=== PATIENT | male | born 1950 | race Caucasian/White ===

== ENCOUNTER → 2017-08-22 | Day surgery (SDC) | payer BC, OTHER ==
[~2017-08-22] VITALS: Ht 193 cm; Wt 102.0 kg
[~2017-08-22] MED LIST: ATROPINE SULFATE 1% OPHT SOLN 2 ML BTL ONE; BALANCED SALT SOLN OPHT IRRIG 15 ML BTL ONE; CHLORHEXIDINE GLUCONATE 2 % 1 PACK (2 CLOTHS) TOPICAL PRN; DEXAMETHASONE SOD PHOS 4 MG/ML VIAL ONE; DO NOT ADM ANY ANTICOAGULANT DRUGS PRN; EPINEPHrine HCL (1:1000) 1 MG/ML VIAL ONE; GLYCOPYRROLATE 1 MG/5 ML SYRINGE IV PUSH ONE; INSULIN HUMAN REGULAR 1,000 UNITS/10 ML VIAL SQ PRN; LACTATED RINGER'S 1000 ML IV PRN; LIDOCAINE HCL 1% PF 5 ML AMPULE OTHER ONE; LISI-519 PO; LOSA25TA PO; METOPROLOL TARTRATE 25 MG TAB PO PRN; OMEP20TA93 PO; PHENYLEPH/NS 1000 MCG/10 ML SYR IV ONE; POVIDONE IODINE 5% (ANTISEPSIS KIT) 4 APPLICATIONS EACH NARE PRN; PROPOFOL 200 MG/20 ML AMP IV ONE; SODIUM CHLORID 0.9% 500 ML IV PRN; STERILE WATER FOR INJECTION 20 ML VIAL ONE; SYNT88TA PO; TOBRAMYCIN/DEXAMETHASONE OPTH OINT 3.5 GM TUBE ONE; TRIAMCINOLONE ACETONIDE/PF 40 MG/ML OPTH VIAL ONE; ceFAZolin INJ 1,000 MG VIAL ONE; ePHEDrine/NS 25 MG/5 ML SYR IV ONE
[2017-08-22 13:18] LABS: AUTOMATED NEUTROPHIL # 4.2 TH/MM3 (1.8-7.7); BASOPHIL % 0.6 % (0.0-2.0); EOSINOPHIL # 0.2 TH/MM3 (0-0.4); EOSINOPHIL % 3.2 % (0.0-4.0); HEMATOCRIT 42.4 % (39.0-51.0); HEMO FLAGS DIFF FINAL; LYMPH % 29.6 % (9.0-44.0); LYMPHOCYTE # 2.1 TH/MM3 (1.0-4.8); MEAN CORPUSCULAR HEMOGLOBIN 31.2 PG (27.0-34.0); MEAN CORPUSCULAR HGB CONC 34.7 % (32.0-36.0); MONO % 7.8 % (0.0-8.0); NEUT % 58.8 % (16.0-70.0); PLATELET COUNT 223 TH/MM3 (150-450); RED BLOOD COUNT 4.71 MIL/MM3 (4.50-5.90); RED CELL DISTRIBUTION WIDTH 13.3 % (11.6-17.2); WHITE BLOOD COUNT 7.2 TH/MM3 (4.0-11.0)
[2017-08-22] MEDS: ATROPINE SULFATE 1% OPHT SOLN 5 ML BTL RIGHT EYE SCH ×4 (13:30→14:15)
[2017-08-22] MEDS: TROPICAMIDE 1% OPHT SOLN 15 ML BTL RIGHT EYE SCH ×4 (13:30→14:15)
[2017-08-22] MEDS: PHENYLEPHRINE HCL 2.5% OPTH SOLN 2 ML BTL RIGHT EYE SCH ×4 (13:30→14:15)
[2017-08-22] MEDS: CYCLOPENTOLATE HCL 1% OPHT SOLN 2 ML BTL RIGHT EYE SCH ×4 (13:30→14:15)
[2017-08-22 17:03] VITALS: BP 144/88; PULSE 87; RESP 18; TEMP 97.4; O2SAT 97
--- NOTE | 2017-08-23 12:07 | EKG ---
Date Performed: 08/22/2017 Time Performed: 11:58:29 PTAGE: 66 years EKG: Sinus rhythm WITH FIRST DEGREE AV BLOCK BORDERLINE LEFT AXIS DEVIATION INCOMPLETE RIGHT BUNDLE BRANCH BLOCK NONSP ECIFIC T-WAVE ABNORMALITY ABNORMAL ECG Compared to prior tracing no significant change PREVIOUS TRACING : 07/06/2014 09.48 DOCTOR: Ahmet Ochoa Interpretating Date/Time 08/23/2017 12:06:34
--- NOTE | 2017-09-04 09:11 | MP ---
cc: PARKER PISANO M.D. DATE OF SURGERY 08/22/2017 PREOPERATIVE DIAGNOSIS Visually significant epiretinal membrane with macular pucker and visually significant floaters right eye. POSTOPERATIVE DIAGNOSIS Visually significant epiretinal membrane with macular pucker and visually significant floaters right eye. PROCEDURE Trans pars plana vitrectomy with membranectomy and air-fluid exchange right eye. SURGEON Dr. Parker Pisano ANESTHESIA General laryngeal mask anesthesia HISTORY Mr. West is a 66-year-old gentleman who had a prior retinal detachment repaired by scleral buckling procedure. He has been stable since his surgery. However, he has been bothered by visually disruptive floaters and has developed an epiretinal membrane and macular pucker in the right eye. He wished to proceed electively with surgery to repair this and try and improve his visual functioning. The risks and benefits of surgery were discussed with the patient and informed consent was obtained. PROCEDURE NOTE He was brought to [facility] operating room one and placed on the operating table. Appropriate anesthesia monitoring devices were applied and he was placed under general anesthesia using a laryngeal mask. The right eye was identified as the operative site and prepped and draped in the usual sterile fashion. A lid speculum was placed. Microscope was brought around and adjusted. At this time, an appropriate time-out was called with the surgical team agreeing to the surgical site and proposed procedure. Using the Lonny 23-gauge vitrectomy system, a standard vitrectomy was carried out followed by removal of the epiretinal membrane with the intraoperative use of Kenalog and ICG to visualize the membrane. After the membrane was removed, the fundus was inspected with the indirect ophthalmoscope and scleral depression. A small area at 6 o'clock was suspicious for a break and that was treated with the laser indirect ophthalmoscope with a 144 laser spots placed around the area and a power of 300 milliwatts in 0.1-second exposure. An air-fluid exchange was performed using the soft tipped linear extrusion needle after which the cannulas were removed one by one with tamponade of the site with a cotton swab leaving the eye with good pressure and no visible leaks. Subconjunctival injections of Ancef 125 mg in half cc and Decadron 2 mg in half cc were given at separate sites. The lid speculum was removed. Atropine drops were placed on the cornea and once the patient was undraped, TobraDex ointment was placed on the cornea and then the right eye was patched and shielded. The patient had the laryngeal mask removed in the room and was returned to recovery in good condition laying on his left side. He was seen in the office the following morning. MD EDNA Sena/RHODA /8:33 AM /9:07 AM
== END | disposition home or self-care (01) ==
LOC: HSDC 11:14
PROVIDERS: ATTEND Ophthalmology
DX: H35.371 Puckering of macula, right eye (principal); H43.391 Other vitreous opacities, right eye; R94.31 Abnormal electrocardiogram [ECG] [EKG]; I10 Essential (primary) hypertension
CPT/HCPCS: 00145; 67041; 85025; 93005; J0690; J1100; J2370; J3010; J3300; J7120; J0171